=== PATIENT | male | born 1980 | race Caucasian/White ===

== ENCOUNTER 2020-01-12 09:16 | Emergency (ER) | payer OTHER, SELFPAY ==
--- NOTE | ~2020-01-12 | XR_ITS ---
XR shoulder LT min 2V 01/12/2020 09:43 Indication: Left shoulder deformity after recent fall Procedure: 4 views left shoulder Comparison: No prior studies for comparison. Findings: The clavicle is elevated with respect to the acromion with widening of the cortical clavicu lar distance, compatible with acromioclavicular separation type III. No fracture or traumatic malalig nment. No foreign bodies. Impression: 1: Acromioclavicular type III separation. Reviewed, dictated and finalized at location B. Impression: 1: Acromioclavicular type III separation.
[2020-01-12 09:15] VITALS: BP 156/101; PULSE 89; RESP 18; TEMP 36.6; O2SAT 97
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
[2020-01-12 09:50] VITALS: BP 135/97; PULSE 78; RESP 20; O2SAT 99
== END 2020-01-12 10:19 | disposition home or self-care (01) ==
PROVIDERS: Emergency Provider Emergency Medicine
DX: S43.102A Unspecified dislocation of left acromioclavicular joint, initial encounter (principal); Y35.819A Legal intervention involving manhandling, unspecified person injured, initial encounter
CPT/HCPCS: 73030; 99283; A4565; A9270